=== PATIENT | male | born 1950 | race Caucasian/White ===

== ENCOUNTER 2021-09-02 07:42 | Outpatient (CLI) | payer OTHER ==
[2021-09-02] MEDS ORDERED: Iopamidol 370 76% 100 ML VIAL ONE (11:23)
== END 2021-09-02 07:43 | disposition home or self-care (01) ==
LOC: CT 07:42
PROVIDERS: ATTEND Thoracic Surgery (Cardiothoracic Vascular Surgery)
DX: I71.4 Abdominal aortic aneurysm, without rupture (principal)
CPT/HCPCS: 74174; 82565; Q9967